=== PATIENT | male | born 1940 | race Caucasian/White ===

== ENCOUNTER 2020-09-14 10:34 | Inpatient (IN) | payer OTHER ==
[2020-09-14] MEDS ORDERED: SODIUM CHLORIDE 2,449 ML IV ONE (11:57)
[2020-09-14] MEDS ORDERED: ACETAMINOPHEN 1000 MG/100 ML VIAL (NON FORMULARY) IVPB ONE (11:58)
[2020-09-14] MEDS ORDERED: ACETAMINOPHEN INJECTION 100 ML IVPB ONE (12:15)
[2020-09-14 12:41] LABS: VENOUS BASE EXCESS -3.4 mmol/L (-2-2); VENOUS O2 SATURATION 41.2 % (70-80); VENOUS PCO2 45.1 mmHg (38-52); VENOUS PH 7.32 (7.310-7.410)
[2020-09-14 12:44] LABS: BASO % 0.3 % (0-2.0); EOS % 0.1 % (0-4.5); HEMATOCRIT 34.1 % (35.4-49); HEMOGLOBIN 11.5 GM/dL (11.7-16.9); LYMPH % 3.3 % (8-40); MCH 29.2 pg (25.7-33.7); MCHC 33.6 g/dl (32.0-35.9); MEAN PLT VOLUME 8.6 fl (7.5-11.1); MONO % 8.8 % (3.8-10.2); NEUT % 87.5 % (42.8-82.8); PLATELET COUNT 201 10^3/uL (134-434); RBC 3.92 M/mm3 (4.00-5.60); RDW 13.3 % (11.9-15.9); WHITE BLOOD COUNT 17.6 K/mm3 (4.0-10.0)
[2020-09-14 12:53] LABS: INR 1.26 (0.83-1.09); PROTHROMBIN TIME (PATIENT) 15.4 SEC (9.7-13.0)
[2020-09-14 12:55] LABS: ACTIVATED PTT 28.8 SECONDS (25.2-36.5)
[2020-09-14 12:56] LABS: CHLORIDE 101 mmol/L (98-107); SODIUM 134 mmol/L (136-145)
[2020-09-14 12:59] LABS: CALCIUM 8.7 mg/dL (8.5-10.1)
[2020-09-14 13:00] LABS: ALBUMIN 3.2 g/dl (3.4-5.0); ANION GAP 12 MMOL/L (8-16); BLOOD UREA NITROGEN 25.7 mg/dL (7-18); CO2 22 mmol/L (21-32); GLUCOSE,RANDOM 122 mg/dL (74-106)
[2020-09-14 13:03] LABS: CREATININE 2.2 mg/dL (0.55-1.3); SGOT/AST 28 U/L (15-37); SGPT/ALT 26 U/L (13-61)
[2020-09-14 13:05] LABS: ALK PHOS 89 U/L (45-117)
[2020-09-14 13:08] LABS: LACTIC ACID 3.4 mmol/L (0.4-2.0)
[2020-09-14] MEDS ORDERED: PIPERACILLIN/TAZOB 2.25 GM 2.25 GM in DEXTROSE 5%-WATER - 50 ML IVPB ONE (13:29)
[2020-09-14] MEDS ORDERED: VANCOMYCIN 1 GM in D5W (PRE-DOCKED) 1,000 MG/250 ML IVPB ONE (13:30)
[2020-09-14] MEDS ORDERED: PIPERACILLIN/TAZOB 2.25 GM 2.25 GM/50 ML BAG IVPB ONE (13:57)
[2020-09-14] MEDS ORDERED: VANCOMYCIN 1 GRAM (PRE-DOCKED) 1,000 MG/250 ML BAG IVPB ONE (13:57)
[2020-09-14 15:41] LABS: EPI CELLS 9 /uL (0-25.1); HYALINE CASTS 6 /uL (0-3.1); URINE APPEARANCE CLOUDY; URINE BACTERIA 1 /uL (0-1359); URINE BILIRUBIN NEGATIVE (NEGATIVE); URINE COLOR YELLOW; URINE GLUCOSE (UA) NEGATIVE (NEGATIVE); URINE KETONE NEGATIVE (NEGATIVE); URINE LEUK ESTERASE NEGATIVE (NEGATIVE); URINE NITRITE NEGATIVE (NEGATIVE); URINE PROTEIN 1+ (NEGATIVE); URINE RBC 52 /uL (0-23.9); URINE WBC 9 /uL (0-25.8)
[2020-09-14] MEDS ORDERED: LACTATED RINGERS SOLUTION 1000 ML INFUS.BAG IV ONE ×2 (15:45→17:47)
[2020-09-14] MEDS ORDERED: ACETAMINOPHEN 325 MG TABLET (FP) PO PRN (17:29)
[2020-09-14] MEDS ORDERED: SODIUM CHLORIDE 1,000 ML IV SCH (17:30)
[2020-09-14] MEDS ORDERED: CEFEPIME 2 GM/100 ML BAG IVPB ONE (17:46)
[2020-09-14] MEDS: CEFEPIME HCL/D5W 2 GM/50 ML BAG IVPB SCH (17:54)
[2020-09-14 19:46] LABS: INR 1.32 (0.83-1.09); PROTHROMBIN TIME (PATIENT) 16.1 SEC (9.7-13.0)
[2020-09-14 19:49] LABS: ACTIVATED PTT 26.5 SECONDS (25.2-36.5)
[2020-09-14] MEDS: SODIUM CHLORIDE 1,000 ML IV SCH (20:13)
[2020-09-14] MEDS: HEPARIN NA (PORCINE) 5,000 UNITS/ML 1ML VIAL SQ SCH (21:27)
[2020-09-14] MEDS: CHLORHEXIDINE GLUCONATE 4% CLEANSER FOR DECOLONIZATION TP SCH (21:27)
[2020-09-14] MEDS: MUPIROCIN 2% TOPICAL OINTMENT FOR DECOLONIZATION NS SCH (21:27)
[2020-09-14 23:00] LABS: EPI CELLS 3 /uL (0-25.1); HYALINE CASTS 2 /uL (0-3.1); URINE APPEARANCE CLEAR; URINE BACTERIA 2 /uL (0-1359); URINE BILIRUBIN NEGATIVE (NEGATIVE); URINE COLOR YELLOW; URINE GLUCOSE (UA) NEGATIVE (NEGATIVE); URINE KETONE TRACE (NEGATIVE); URINE LEUK ESTERASE NEGATIVE (NEGATIVE); URINE NITRITE NEGATIVE (NEGATIVE); URINE PROTEIN TRACE (NEGATIVE); URINE RBC 13 /uL (0-23.9); URINE UROBILINOGEN 0.2 mg/dL (0.2-1.0); URINE WBC 6 /uL (0-25.8)
[2020-09-15] MEDS ORDERED: PT OWN MED DRAWER 7, Y5N ONE ×2 (00:45→09:58)
[2020-09-15] MEDS: CEFEPIME HCL/D5W 2 GM/50 ML BAG IVPB SCH ×2 (01:03→10:04)
[2020-09-15] MEDS ORDERED: CEFEPIME HCL/D5W 2 GM/50 ML BAG IVPB SCH (02:00)
[2020-09-15] MEDS: HEPARIN NA (PORCINE) 5,000 UNITS/ML 1ML VIAL SQ SCH ×3 (06:16→21:12)
[2020-09-15 07:07] LABS: BASO % 0.4 % (0-2.0); EOS % 0.4 % (0-4.5); HEMATOCRIT 30.1 % (35.4-49); HEMOGLOBIN 10.1 GM/dL (11.7-16.9); LYMPH % 3.7 % (8-40); MCH 29.7 pg (25.7-33.7); MCHC 33.7 g/dl (32.0-35.9); MEAN CELL VOLUME 88.1 fl (80-96); MEAN PLT VOLUME 8.9 fl (7.5-11.1); MONO % 7.4 % (3.8-10.2); NEUT % 88.1 % (42.8-82.8); PLATELET COUNT 163 10^3/uL (134-434); RBC 3.41 M/mm3 (4.00-5.60); RDW 13.3 % (11.9-15.9); WHITE BLOOD COUNT 15.1 K/mm3 (4.0-10.0)
[2020-09-15 07:26] LABS: CALCIUM 7.9 mg/dL (8.5-10.1)
[2020-09-15 07:27] LABS: BLOOD UREA NITROGEN 19.2 mg/dL (7-18)
[2020-09-15 07:30] LABS: CREATININE 1.4 mg/dL (0.55-1.3)
[2020-09-15 07:31] LABS: BILIRUBIN,TOTAL 2.1 mg/dL (0.2-1); TOT PROT 5.9 g/dl (6.4-8.2)
[2020-09-15 07:33] LABS: ALBUMIN 2.5 g/dl (3.4-5.0)
[2020-09-15] MEDS: MUPIROCIN 2% TOPICAL OINTMENT FOR DECOLONIZATION NS SCH ×2 (09:59→21:13)
[2020-09-15] MEDS: PANTOPRAZOLE SODIUM 40 MG VIAL IVPUSH SCH (10:05)
[2020-09-15] MEDS ORDERED: PIPERACILLIN/TAZOBACTAM 3.375 GM VIAL IVPB ONE ×2 (16:53→21:09)
[2020-09-15] MEDS ORDERED: DEXTROSE 5%-WATER - 50 ML IVPB ONE ×2 (16:53→21:09)
[2020-09-15] MEDS: PIPERACILLIN/TAZOB 3.375 GM 3.375 GM in DEXTROSE 5%-WATER - 50 ML IVPB SCH (17:05)
[2020-09-15] MEDS: CHLORHEXIDINE GLUCONATE 4% CLEANSER FOR DECOLONIZATION TP SCH (21:13)
[2020-09-16] MEDS: PIPERACILLIN/TAZOB 3.375 GM 3.375 GM in DEXTROSE 5%-WATER - 50 ML IVPB SCH ×3 (02:00→18:08)
[2020-09-16] MEDS: SODIUM CHLORIDE 1,000 ML IV SCH ×2 (04:05→18:08)
[2020-09-16] MEDS: HEPARIN NA (PORCINE) 5,000 UNITS/ML 1ML VIAL SQ SCH ×2 (05:51→14:05)
[2020-09-16 06:58] LABS: BASO % 0.3 % (0-2.0); EOS % 0.5 % (0-4.5); HEMATOCRIT 30.7 % (35.4-49); HEMOGLOBIN 10.1 GM/dL (11.7-16.9); LYMPH % 3.2 % (8-40); MCH 29.3 pg (25.7-33.7); MCHC 33.1 g/dl (32.0-35.9); MEAN CELL VOLUME 88.6 fl (80-96); MEAN PLT VOLUME 9.3 fl (7.5-11.1); MONO % 7.2 % (3.8-10.2); NEUT % 88.8 % (42.8-82.8); PLATELET COUNT 204 10^3/uL (134-434); RBC 3.47 M/mm3 (4.00-5.60); WHITE BLOOD COUNT 13.2 K/mm3 (4.0-10.0)
[2020-09-16 07:22] LABS: ALBUMIN 2.3 g/dl (3.4-5.0); BLOOD UREA NITROGEN 15.6 mg/dL (7-18); CALCIUM 8.1 mg/dL (8.5-10.1)
[2020-09-16 07:25] LABS: CREATININE 1.4 mg/dL (0.55-1.3)
[2020-09-16 07:26] LABS: BILIRUBIN,TOTAL 1.4 mg/dL (0.2-1); TOT PROT 5.6 g/dl (6.4-8.2)
[2020-09-16] MEDS ORDERED: PIPERACILLIN/TAZOBACTAM 3.375 GM VIAL IVPB ONE ×2 (09:52→17:51)
[2020-09-16] MEDS ORDERED: DEXTROSE 5%-WATER - 50 ML IVPB ONE ×2 (09:52→17:51)
[2020-09-16] MEDS: PANTOPRAZOLE SODIUM 40 MG VIAL IVPUSH SCH (09:57)
[2020-09-16] MEDS: MUPIROCIN 2% TOPICAL OINTMENT FOR DECOLONIZATION NS SCH (09:57)
[2020-09-16 16:20] VITALS: BMI 29.8
[2020-09-16 20:28] VITALS: BP 131/74; PULSE 91; TEMP 98.7
== END 2020-09-16 20:29 | disposition short-term general hospital (02) | DRG 872 ==
LOC: JER 10:34 → JERBED 13:25 → JICU 20:41
PROVIDERS: ATTEND Nurse Practitioner Family
DX: A41.9 Sepsis, unspecified organism (principal); N17.9 Acute kidney failure, unspecified; C48.1 Malignant neoplasm of specified parts of peritoneum; C78.7 Secondary malignant neoplasm of liver and intrahepatic bile duct; K81.0 Acute cholecystitis; E87.2 Acidosis; E78.5 Hyperlipidemia, unspecified; I12.9 Hypertensive chronic kidney disease with stage 1 through stage 4 chronic kidney disease, or unspecified chronic kidney disease; N18.9 Chronic kidney disease, unspecified; K21.9 Gastro-esophageal reflux disease without esophagitis
CPT/HCPCS: 36415; 71045-TC-FY; 74176-TC; 76700-TC; 80053; 81003; 82550; 82553; 82570; 82728; 82803; 82962; 83540; 83550; 83605; 83735; 84300; 84466; 84484; 85025; 85610; 85730; 86850; 86900; 86901; 87040; 87086; 93005; 93010; 93308; 99285-25; C9803; J0131; J1644; U0003; U0005